=== PATIENT | female | born 1945 | race Caucasian/White ===

== ENCOUNTER 2016-09-23 11:58 | Inpatient (IN) | payer OTHER, MEDICARE ==
[~2016-09-23] VITALS: Ht 165.1 cm; Wt 176.0 kg
--- NOTE | 2016-09-23 11:59 | NUR ---
Patient BIBA to bed 3 at this time.
[2016-09-23 12:13] VITALS: BP 135/73
--- NOTE | 2016-09-23 12:20 | NUR ---
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 PT STATES NORMALLY USES WALKER; NO INJURY OR TRAUMA NOTED; PT C/O "SHARP" NON-RADIATING LOWER BACK PAIN; PT DENIES ANY HEAD OR NECK PAIN; PT DENIES N/V/D; SKIN IS PINK/WARM/DRY; AAOX4; PERRLA; LUNGS CLEAR BL; A. FIB ON CM; PT DENIES ANY FEVER, CP, SOB, OR COUGH AT THIS TIME; VSS; PATIENT POSITIONED FOR COMFORT; HOB ELEVATED; BEDRAILS UP X2; BED DOWN. ER MD MADE AWARE OF PT STATUS.
[2016-09-23] MEDS ORDERED: FERR325E14 PO (12:31)
[2016-09-23] MEDS ORDERED: [UNRECOGNIZED DRUG - CODE] PO (12:31)
[2016-09-23] MEDS ORDERED: MEDR10TA PO (12:31)
[2016-09-23] MEDS ORDERED: PRAV20TA5 PO (12:31)
[2016-09-23] MEDS ORDERED: BACL10TA4 PO (12:31)
[2016-09-23] MEDS ORDERED: ATEN50TA8 PO (12:31)
[2016-09-23] MEDS ORDERED: ASPI81CT89 PO (12:31)
[2016-09-23] MEDS ORDERED: FENO54TA4 PO (12:31)
--- NOTE | 2016-09-23 12:42 | NUR ---
DR STREETER AT BEDSIDE.
[2016-09-23] MEDS ORDERED: traMADol 50 MG TAB PO ONE (12:55)
[2016-09-23] MEDS ORDERED: KETOROLAC 60 MG/2 ML VIAL IM ONE (12:55)
--- NOTE | 2016-09-23 13:00 | NUR ---
SON OF PATIENT, LISA PONCE, BY BEDSIDE; SON STATED "I FEEL LIKE MY MOM IS NOT ABLE TO TAKE CARE OF HER SELF ALONE AT HER HOUSE...SHE DOESN'T ASK FOR HELP WHEN SHE NEEDS IT"; CASE MANAGEMENT CALLED; WILL FOLLOW UP.
--- NOTE | 2016-09-23 13:42 | NUR ---
PATIENT PLACED ON BED RODRIGUEZ
[2016-09-23] MEDS ORDERED: ONDANSETRON 4 MG ODT PO ONE (13:50)
--- NOTE | 2016-09-23 14:00 | NUR ---
PATIENT CHANGED POSITION AND LINENS CHANGED; PATIENT HAD A BOWEL MOVEMENT; PT TOLERATED WELL; ALL NEEDS MET THIS TIME; WILL CONTINUE TO MONITOR
--- NOTE | 2016-09-23 14:35 | NUR ---
TALKED TO SENIOR ENVIRONMENTAL TECHNICIAN;INQUIRE IF PT WANTS TO BE IN [facility] BECAUSE THAT'S THE ONLY OPTION THEY HAVE AT THIS TIME;PER MOTHER SON WANTS HER TO BE IN REHAB.T WNTS TO BE IN [facility] BEACUSE THAT;SENIOR ENVIRONMENTAL TECHNICIAN WILL CALL IF SON RETURN TO ER.
--- NOTE | 2016-09-23 15:08 | NUR ---
SEWER HEAD SPOKE TO SON OF THE PT .
--- NOTE | 2016-09-23 15:12 | NUR ---
X-RAY BY BEDSIDE
--- NOTE | 2016-09-23 15:13 | NUR ---
Patient appears to be resting comfortably in bed. Vital Signs within normal limits. Respirations even and unlabored.
[2016-09-23 15:26] LABS: BASOPHILS # (AUTO) 0.1 K/uL (0.00-0.22); BASOPHILS % (AUTO) 1.1 % (0.0-2.0); EOSINOPHILS # (AUTO) 0.2 K/uL (0-0.4); HEMATOCRIT 40.6 % (36-48); HEMOGLOBIN 13.7 g/dL (12.0-16.0); LYMPHOCYTES # (AUTO) 1.1 K/uL (2.5-16.5); LYMPHOCYTES % (AUTO) 9.6 % (20.5-51.1); MEAN CORPUSCULAR HEMOGLOBIN 29 pg (27-31); MEAN CORPUSCULAR HGB CONC 34 g/dL (33-37); MEAN CORPUSCULAR VOLUME 87 fL (80-94); MONOCYTES # (AUTO) 0.5 K/uL (0.8-1.0); MONOCYTES % (AUTO) 3.9 % (1.7-9.3); NEUTROPHILS % (AUTO) 83.4 % (42.2-75.2); PLATELET COUNT (AUTO) 184 K/uL (140-450); RED BLOOD CELL COUNT(AUTO) 4.68 MIL/uL (4.20-5.40); WHITE BLOOD COUNT (AUTO) 11.9 K/uL (4.8-10.8)
--- NOTE | 2016-09-23 15:27 | NUR ---
SS NOTE: I SPOKE WITH PT'S SON, LISA. HE STATED THAT PT LIVES ALONE AT HOME. HE ALSO STATED THAT HE DOES NOT THINK THAT FAMILY WOULD BE ABLE TO CARE FOR PT DUE TO HER NEED AND SIZE. I INFORMED HIM THAT IT WOULD BE UP TO PT'S INSURANCE ON WHETHER THEY WILL AUTHORIZE SNF PLACEMENT FOR HER, HE VERBALIZED UNDERSTANDING.
[2016-09-23 15:37] LABS: ANION GAP 13.3 (8-16); CALCIUM 9.2 mg/dL (8.5-10.1); CARBON DIOXIDE 26.9 mmol/L (21-32); CHLORIDE 105 mmol/L (98-107); GLUCOSE 138 mg/dL (74-106); POTASSIUM 4.2 mmol/L (3.5-5.1); SODIUM SERUM 141 mmol/L (136-145); UREA NITROGEN, BLOOD 23 mg/dL (7-18)
[2016-09-23 15:44] LABS: ALANINE AMINOTRANSFERASE 38 U/L (14-59); ALBUMIN 3.1 g/dL (3.4-5.0); ALKALINE PHOSPHATASE 96 U/L (46-116); ASPARTATE AMINOTRANSFERASE 48 U/L (15-37); TOTAL BILIRUBIN 1.2 mg/dL (0.0-1.0); TOTAL PROTEIN, SERUM 6.4 g/dL (6.4-8.2)
--- NOTE | 2016-09-23 15:49 | NUR ---
CM NOTE SPOKE W/ HAILEE CHANG FOR [facility] (INPATIENT). FORWARDED PATIENT TO CM FOR [facility] (ER). SPOKE W/ HAILEE ARZOLA FOR [facility] (ER). MADE AWARE THAT PATIENT POSSIBLY WILL BE ADMITTED. WAS PROVIDED # IN CASE IF PATIENT IS STILL IN ER ([phone]). IF PATIENT WERE TO BE ADMITTED, YESICA ([id number]) TO BE CM.
--- NOTE | 2016-09-23 16:03 | NUR ---
PT LYING ON BED;NEEDDS ATTENDED;SAFETY MEASURES DONE;ALL MONITORS IN PLACED.
--- NOTE | 2016-09-23 16:31 | NUR ---
FAMILY BY BEDSIDE; PT HAS NO COMPLAINTS; PT IS AAO X 4; NAD; RR ARE EVEN AND UNLABORED; PT SPEAKING IN FULL SENTENCES; WILL CONTINUE TO MONITOR
[2016-09-23 16:39] LABS: APPEARANCE,URINE CLEAR (CLEAR); BILIRUBIN,URINE 2+ (NEGATIVE); BLOOD, URINE 2+ (NEGATIVE); LEUKOCYTE ESTERASE ,URINE NEGATIVE (NEGATIVE); NITRITE, URINE NEGATIVE (NEGATIVE); PROTEIN,URINE TRACE (NEGATIVE); UGLUCOSE NEGATIVE (NEGATIVE); UROBILINOGEN,URINE 0.2 EU/dL (0.2 - 1)
[2016-09-23 16:43] LABS: COLOR,URINE AMBER (YELLOW)
--- NOTE | 2016-09-23 16:46 | NUR ---
DALI BONDED STRUCTURES REPAIRER CALLED; UPDATED ON PT STATUS
--- NOTE | 2016-09-23 16:56 | NUR ---
DR HARRISON BY BEDSIDE EXAMINING PT
[2016-09-23 17:08] LABS: BACTERIA,URINE None Seen /HPF (None Seen); ICTOTEST NEGATIVE (NEGATIVE); RBC,URINE 0-5 (RARE) /HPF (0-5); SQUAMOUS EPITHELIAL CELL,UR RARE /LPF (0-3 (FEW)); WBC,URINE NONE SEEN /HPF (0-5)
[2016-09-23] MEDS ORDERED: ONDANSETRON 4 MG/2 ML VIAL IM/IVP PRN (17:10)
[2016-09-23] MEDS ORDERED: DOCUSATE SODIUM 100 MG GELCAP PO PRN (17:10)
[2016-09-23] MEDS ORDERED: MORPHINE SULFATE 2 MG/ML SYR IVP PRN (17:10)
[2016-09-23] MEDS ORDERED: ACETAMINOPHEN 325 MG TAB PO PRN (17:10)
--- NOTE | 2016-09-23 17:24 | NUR ---
PT LYING ON BED;SAFETY MEASURES INSTITUTED;NO ACUTE DISTRESS NOTED;WILL CONTIUE TO MONITOR PT.
[2016-09-23] MEDS ORDERED: BACLOFEN 10 MG TAB PO SCH (17:40)
--- NOTE | 2016-09-23 18:09 | NUR ---
ER MD BY BEDSIDE UPDATING MOTHER OF PT
--- NOTE | 2016-09-23 18:34 | NUR ---
Patient will be admitted to care of [facility]. Admited to tele. Will go to room 123B. Belongings list completed. Report to marlene jorge rn.
[2016-09-23] MEDS ORDERED: ECOTRIN 81 MG TABEC PO ONE (18:50)
[2016-09-23] MEDS ORDERED: SIMVASTATIN 10 MG TAB PO ONE (18:50)
--- NOTE | 2016-09-23 18:53 | NUR ---
PT ON UNIT FROM ER. AAOX4. NO S/S OF ACUTE DISTRESS. PT DENIES PAIN. IV SITE PATENT AND INTACT. REDNESS NOTED TO ABDOMINAL FOLDS. PT STATES SKIN CONDITION ON FEET IS RELATED TO PAST CELLULITIS. VITALS ARE 97.8 93% 119/63 18 86. PT ORIENTED TO UNIT. CALL LIGHT WITHIN REACH. SAFETY MEASURES ENSURED. WILL CONTINUE TO MONITOR.
--- NOTE | 2016-09-23 19:30 | NUR ---
RECEIVED REPORT FROM DAY RN AT BEDSIDE, PATIENT IS AAOX4 ON ROOM AIR, NO SOB OR SIGN OF DISTRESS, PT RESTING IN BED, IV TO RIGHT FA PATENT AND INTACT, SKIN INTACT WITH REDNESS IN BODY FOLDS THROUGHOUT BODY, NOTED FOUL ODOR COMING FROM FOLDS WITH MOISTURE PRESENT. DRYNESS AND DISCOLORATION TO BILATERAL LOWER EXTREMITIES. USÁREZ PRESENT DRAINING CLEAR YELLOW FLUID. PT DENIES PAIN AT THIS TIME, CALL LIGHT WITHIN REACH, WILL CONTINUE TO MONITOR.
--- NOTE | 2016-09-23 19:39 | NUR ---
POST REPORT GIVEN TO DALI PT FAMILY AT BEDSIDE, SAFETY MEASURES IN PLACE.
[2016-09-23 19:45] LABS: MAGNESIUM 1.8 mg/dL (1.8-2.4); PHOSPHORUS 3.2 mg/dL (2.5-4.9); THYROID STIMULATING HORMONE 1.33 uIU/mL (0.34-3.74)
[2016-09-23 19:48] LABS: AMPHETAMINE, URINE NEG. ng/ml (NEG <=1000); BARBITURATE, URINE NEG. ng/ml (NEG <=200); BENZODIAZEPINE, URINE NEG. ng/mL (NEG <=200); CANNABINOID, URINE NEG. ng/mL (NEG <=50); COCAINE, URINE NEG. ng/mL (NEG <=300); OPIATE, URINE NEG. ng/mL (NEG <=2000); PHENCYCLIDINE SCREEN,URINE NEG. ng/mL (NEG <=25)
[2016-09-23 20:00] VITALS: BP 141/50
[2016-09-23] MEDS ORDERED: KETOROLAC 15 MG/ML VIAL IM PRN (20:20)
[2016-09-23] MEDS: ATENOLOL 50 MG TAB PO SCH (20:42)
[2016-09-23] MEDS: FERROUS SULFATE 325 MG TABEC PO SCH (20:42)
[2016-09-23] MEDS: BACLOFEN 10 MG TAB PO SCH (20:42)
[2016-09-23] MEDS: medroxyPROGESTERone 10 MG TAB PO SCH (20:43)
--- NOTE | 2016-09-23 20:45 | NUR ---
PM MEDS ADMINISTERED, PT TOLERATED WELL, PT RESTING IN BED, NO SIGNS OF DISTRESS, CALL LIGHT WITHIN REACH. WILL CONTINUE TO MONITOR
[2016-09-23] MEDS ORDERED: NYSTATIN CRE 100 MU/GM 15 GM TUBE TP SCH (21:00)
[2016-09-23] MEDS: NYSTATIN POW 100 MU/GM 15 GM BTL TP SCH (21:00)
[2016-09-23] MEDS ORDERED: METHOCARBAMOL 500 MG TAB PO SCH (21:00)
--- NOTE | 2016-09-23 21:25 | NUR ---
CLARIFIED THE [place] ORDER WITH DR VARGAS AND ALISE COLLIER TO GIVE THE FIRST DOSE NOW AND DO NOT ADMINISTER THE MIDNIGHT DOSE, WILL F/U WITH ORDERS. AND MDS STATED TO D/C SUÁREZ PATIENT IS HIGH RISK FOR UTI, WILL CARRY OUT ORDER.
[2016-09-23] MEDS ORDERED: CLINDAMYCIN 600 MG/4 ML VIAL ONE (21:31)
[2016-09-23] MEDS: CLINDAMYCIN 600 MG in DEXTROSE 5% 50 ML IV SCH (21:38)
--- NOTE | 2016-09-23 21:55 | NUR ---
EXPLAINED TO PATIENT I WAS GOING TO REMOVE HER SUÁREZ PER MD ORDER, PT EXPLAINED THAT SHE WOULD LIKE TO KEEP THE SUÁREZ IN FOR THE NIGHT BECAUSE SHE GOES TO THE BATHROOM FREQUENTLY AND SHE DOES NOT "FEEL RIGHT" TO BE GETTING UP AND MOVING. SPOKE WITH DR VARGAS LETTING HER KNOW THE PT WANTS TO KEEP THE SUÁREZ FOR THE NIGHT, MD TO BEDSIDE AND SPOKE WITH PATIENT AND EXPLAINED TO THE PATIENT OF ALL THE RISKS OF KEEPING IN THE SUÁREZ AND THE RISKS OF GETTING A UTI. PATIENT VERBALIZED UNDERSTANDING AND TOLD MD SHE WOULD STILL LIKE TO KEEP THE SUÁREZ IN FOR THE NIGHT. MD ACKNOWLEDGED AND STATED IT WAS OKAY THEN TO KEEP IN THE SUÁREZ.
[2016-09-23] MEDS: NACL 0.9% 1,000 ML IV SCH (22:12)
[2016-09-23 22:25] LABS: INR 1.1 (0.8-1.2); PARTIAL THROMBOPLASTIN TIME 27.9 secs (22-35.6); PROTHROMBIN TIME 10.9 secs (10.8-13.4)
[2016-09-24] VITALS: BP 112/56
--- NOTE | 2016-09-24 | NUR ---
PT SLEEPING, NO SOB OR SIGN OF DISTRESS AT THIS TIME, CALL LIGHT WITHIN REACH. WILL CONTINUE TO MONITOR.
--- NOTE | 2016-09-24 02:30 | NUR ---
PT SLEEPING, NO SOB OR SIGN OF DISTRESS, CALL LIGHT WITHIN REACH. WILL CONTINUE TO MONITOR
[2016-09-24 02:55] LABS: CHOL/HDL RATIO 4.3 (1-4.5)
[2016-09-24 04:00] VITALS: BP 136/56
--- NOTE | 2016-09-24 04:00 | NUR ---
VITAL SIGNS STABLE, NO SOB OR SIGN OF DISTRESS AT THIS TIME, PATIENT GIVEN BED BATH, INTERDRY APPLIED BETWEEN ABDOMINAL FOLDS, CALL LIGHT WITHIN REACH. WILL CONTINUE TO MONITOR
[2016-09-24] MEDS ORDERED: CLINDAMYCIN 600 MG/4 ML VIAL ONE (05:39)
[2016-09-24] MEDS: CLINDAMYCIN 600 MG in DEXTROSE 5% 50 ML IV SCH ×5 (05:47→18:36)
--- NOTE | 2016-09-24 06:26 | NUR ---
FAXED FACE SHEET TO AND DR BLAND'S OFFICES FOR THEIR CONSULTS.
--- NOTE | 2016-09-24 06:35 | NUR ---
DR. BLAND'S FAX SHOWED NO RESPONSE.
--- NOTE | 2016-09-24 07:32 | NUR ---
ENDORSED PATIENT TO DAY RN AT BEDSIDE, PT IN STABLE CONDITION
--- NOTE | 2016-09-24 07:35 | NUR ---
RECEIVED REPORT FROM ELENI MCNALLY. PT IS RESTING IN BED, PT IS A/OX4, PT AMBULATES WITH ASSISTANCE, PT HAS BILATERAL LOWER EXTREMITY DRYNESS, REDNESS UNDERNEATH SKIN FOLDS, SUÁREZ CATHETER IS IN PLACE, NO S/S OF RESPIRATORY DISTRESS OR DISCOMFORT NOTED, SAFETY/FALL PRECAUTIONS ARE IN PLACE, DISCUSSED PLAN OF CARE WITH PT, PT VERBALIZED UNDERSTANDING, CALL LIGHT WITHIN REACH, WILL CONTINUE TO MONITOR.
[2016-09-24 07:38] LABS: BASOPHILS # (AUTO) 0.1 K/uL (0.00-0.22); EOSINOPHILS # (AUTO) 0.3 K/uL (0-0.4); EOSINOPHILS % (AUTO) 3.3 % (0.0-4.0); HEMATOCRIT 38.8 % (36-48); LYMPHOCYTES # (AUTO) 1.3 K/uL (2.5-16.5); LYMPHOCYTES % (AUTO) 15.7 % (20.5-51.1); MEAN CORPUSCULAR HEMOGLOBIN 30 pg (27-31); MEAN CORPUSCULAR HGB CONC 34 g/dL (33-37); MEAN CORPUSCULAR VOLUME 89 fL (80-94); MONOCYTES # (AUTO) 0.5 K/uL (0.8-1.0); NEUTROPHILS # (AUTO) 5.9 K/uL (1.8-7.7); PLATELET COUNT (AUTO) 161 K/uL (140-450); RED BLOOD CELL COUNT(AUTO) 4.38 MIL/uL (4.20-5.40); RED CELL DISTRIBUTION WIDTH 13.8 % (11.6-13.7); WHITE BLOOD COUNT (AUTO) 8.1 K/uL (4.8-10.8)
[2016-09-24 08:00] VITALS: BP 124/59
[2016-09-24 08:09] LABS: ANION GAP 12.8 (8-16); CARBON DIOXIDE 26.4 mmol/L (21-32); CHLORIDE 106 mmol/L (98-107); CREATININE 0.9 mg/dL (0.6-1.3); GLUCOSE 116 mg/dL (74-106); POTASSIUM 4.2 mmol/L (3.5-5.1); SODIUM SERUM 141 mmol/L (136-145); UREA NITROGEN, BLOOD 21 mg/dL (7-18)
[2016-09-24] MEDS ORDERED: INTERDRY CLOTH TP PRN ×2 (08:45→14:20)
[2016-09-24] MEDS ORDERED: INTERDRY CLOTH TP SCH ×2 (09:00→14:20)
[2016-09-24] MEDS ORDERED: NON-FORMULARY ITEM (Fenofibrate 1 TAB) PO SCH (09:00)
--- NOTE | 2016-09-24 09:00 | NUR ---
PHYSICAL THERAPY IS IN PATIENT'S ROOM WORKING WITH PATIENT.
--- NOTE | 2016-09-24 09:13 | NUR ---
FAXED INITIAL REVIEW TO ML [phone] PHONE YESICA [phone] X [phone]
--- NOTE | 2016-09-24 09:13 | NUR ---
PATIENT HAS BEEN SCREENED AND CATEGORIZED HIGH NUTRITION RISK. PATIENT WILL BE SEEN WITHIN 1-2 DAYS OF ADMISSION. 09/24/16-09/25/[address]
[2016-09-24] MEDS ORDERED: NYSTATIN/TRIAMCINOLONE CRM 15 GM TUBE TP SCH (09:20)
[2016-09-24] MEDS: DILTIAZEM 120 MG CAPER PO SCH (09:24)
[2016-09-24] MEDS: LACTOBACILLUS RHAMNOSUS GG 1 EACH CAP PO SCH (09:25)
[2016-09-24] MEDS: ASPIRIN 81 MG TAB.CHEW PO SCH (09:25)
[2016-09-24] MEDS: BACLOFEN 10 MG TAB PO SCH ×2 (09:25→20:31)
[2016-09-24] MEDS: medroxyPROGESTERone 10 MG TAB PO SCH ×2 (09:26→20:31)
[2016-09-24] MEDS: FERROUS SULFATE 325 MG TABEC PO SCH ×2 (09:26→20:31)
[2016-09-24] MEDS: MUPIROCIN 2% OINT 22 GM TUBE TP SCH ×3 (09:27→17:44)
[2016-09-24] MEDS: NYSTATIN POW 100 MU/GM 15 GM BTL TP SCH (09:27)
[2016-09-24 09:30] LABS: MAGNESIUM 1.8 mg/dL (1.8-2.4); PHOSPHORUS 3.4 mg/dL (2.5-4.9)
[2016-09-24 09:46] LABS: HEMOGLOBIN A1C 5.9 % (4.8-5.6)
[2016-09-24] MEDS ORDERED: LACTULOSE 20 GM/30 ML UDC PO SCH (11:01)
[2016-09-24 12:00] VITALS: BP 125/54
--- NOTE | 2016-09-24 12:00 | NUR ---
PT IS RESTING IN BED, PATIENT'S SON IS AT BEDSIDE, CALL LIGHT WITHIN REACH.
--- NOTE | 2016-09-24 12:11 | NUR ---
09/24/16 RD INITIAL ASSESSMENT COMPLETED PLEASE REFER TO NUTRITION ASSESSMENT UNDER CARE ACTIVITY FOR ESTIMATED NUTRITIONAL NEEDS. 1. CONSIDER SWITCH FROM CARDIAC TO MECHANICAL SOFT, CARDIAC [address]ED[address] Addendum: 09/24/16 at [address] 09/24/16 RD INITIAL ASSESSMENT COMPLETED PLEASE REFER TO NUTRITION ASSESSMENT UNDER CARE ACTIVITY FOR ESTIMATED NUTRITIONAL NEEDS. 1. CHANGE DIET TO CARDIAC, MECHANICAL SOFT DIET. 2. RD TO FOLLOW-UP MODERATE RISK, 3-[address]
--- NOTE | 2016-09-24 13:40 | NUR ---
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 PAST MEDICAL HISTORY INCLUDE HYPERTENSION, CHRONIC LYMPHEDEMA OF BLE, A FIB, RHEUMATOID ARTHRITIS AND GLAUCOMA. ALL ABOVE INFORMATION WAS OBTAINED FROM THE ADMISSION H&P. LABS ARE WBC 8.1, H/H 13.0/38.8, GLUCOSE 116, ALBUMIN 3.1, PT/INR 10.9/1.1 AND PTT 27.9. CURRENT MEDS INCLUDE RIVAROXABAN, ASPIRIN, TORADOL, CLINDAMYCIN, MORPHINE AND NORCO. PATIENT IS AWAKE, ORIENTED TO PERSON, PLACE, DATE AND TIME. SKIN WARM TO TOUCH WNL, TOENAILS ARE LONG AND THICKENED, FUNGALLY LOOKING, 3 EDEMA, NO HAIR GROWTH, BLE ARE DRY AND FLAKY, WITH FOUL ODOR AND UNABLE TO PALPATE BILATERAL PEDAL PULSES. FC 16FR PATENT AND INTACT TO RHONDA COLORED URINE IN MODERATE AMOUNT. RIGHT ARM PERIPHERAL IV PATENT AND INTACT. ON ROOM AIR. NEEDS MAX ASSISTANCE IN TURNING. INITIAL PLAN OF CARE AND PRESSURE PREVENTIVE MEASURES DISCUSSED, ABLE TO VERBALIZE UNDERSTANDING. INTEGUMENTARY: BILATERAL BREASTFOLDS, ABDOMINAL FOLDS - INTERTRIGINOUS DERMATITIS BLE - DRY AND FLAKY, PENDING ARTERIAL AND VENOUS U/S SACRALCOCCYX, PERIAREA TO BILATERAL MEDIAL THIGHS - DENUDED RECOMMENDATIONS: -CLEANSE BILATERAL BREASTFOLDS, ABDOMINAL FOLDS WITH MILD SOAP AND WATER, PAT DRY, APPLY INTERDRY Q 7 DAYS AND PRN WITH SOILING. CHECK DRESSING PLACEMENT DAILY -CLEANSE SACRALCOCCYX, PERIAREA TO BILATERAL MEDIAL THIGHS WITH MILD SOAP AND WATER, PAT DRY, APPLY Z GUARD BIDWC AND PRN WITH SOILING. LEAVE OPEN TO AIR -TURN AND REPOSITION PATIENT Q 2H -ASSESS AND MONITOR SKIN CONDITION DURING POSITION CHANGE, PLEASE PAY PARTICULAR ATTENTION TO SACRALCOCCYX, ELBOWS AND HEELS -OFFLOAD BILATERAL HEELS BY PLACING PILLOWS UNDER CALVES AT ALL TIMES, UNLESS OTHERWISE CONTRAINDICATED -PRESSURE REDISTRIBUTION SURFACE THERAPY -PODIATRY CONSULT IN PLACE -BLE ARTERIAL AND VENOUS U/S PENDING RESULTS -KEEP SKIN CLEAN AND DRY AT ALL TIMES. RECOMMENDATIONS DISCUSSED WITH PRIMARY RN AND RESIDENT PHYSICIAN, DR. GRAF WILL FOLLOW UP PATIENT Q7 DAYS AND PRN. PLEASE CONTACT [facility] FOR ANY CONCERNS, QUESTIONS AND CHANGES IN SKIN CONDITION.
[2016-09-24] MEDS ORDERED: Z-GUARD PASTE TP PRN (14:20)
--- NOTE | 2016-09-24 14:30 | NUR ---
PT IS SLEEPING IN BED, CALL LIGHT WITHIN REACH.
[2016-09-24 16:00] VITALS: BP 118/56
[2016-09-24] MEDS ORDERED: ATORVASTATIN 20 MG TAB PO SCH (16:15)
--- NOTE | 2016-09-24 17:44 | NUR ---
STORAGE AND BACKUP ADMINISTRATOR IS AT PATIENT'S BEDSIDE AT THIS TIME.
[2016-09-24] MEDS: NACL 0.9% 1,000 ML IV SCH (18:34)
[2016-09-24] MEDS: RIVAROXABAN 10 MG TAB PO SCH (18:39)
--- NOTE | 2016-09-24 19:20 | NUR ---
ENDORSED PT TO ELENI PAIGE. FOR CONTINUITY OF CARE, PT STABLE AT THIS TIME, PT'S FRIEND IS AT BEDSIDE.
--- NOTE | 2016-09-24 19:25 | NUR ---
RECEIVED PT IN STABLE CONDITION FROM AM NURSE. AWAKE,ALERT AND ORIENTED X4. TELE PT. BEDREST. WITH TARSHA WEAKNESS. NO C/O ANY DISCOMFORT NOR PAIN NOTED A THIS TIME. IVF INFUSING WELL ON THE RT FA #[id number]. CLEAR AND PATENT. TARSHA BREAST FOLD AND LOWER ABDOMINAL FOLDS WITH SOME REDNESS, HAS INTER DRY CLOTH ON. SUÁREZ CATH TO GRAVITY. BLE LARGE WITH SKIN DRYNESS. ELEVATED ON PILLOW. PLAN OF CARE DISCUSSED AND VERBALIZED UNDERSTANDING. BED ON LOW POSITION. CALL LIGHT PLACED WITHIN EASY REACH. WILL CONTINUE TO MONITOR.
[2016-09-24 20:00] VITALS: BP 126/54
[2016-09-24] MEDS ORDERED: SIMVASTATIN 10 MG TAB PO SCH ×2 (21:00)
[2016-09-24] MEDS: ATENOLOL 50 MG TAB PO SCH (21:00)
--- NOTE | 2016-09-24 22:00 | NUR ---
MADE ROUNDS. STILL AWAKE. NO C/O ANY DISCOMFORT NOTED. WILL CONTINUE TO MONITOR.
[2016-09-25] VITALS: BP 128/62
[2016-09-25] MEDS: CLINDAMYCIN 600 MG in DEXTROSE 5% 50 ML IV SCH ×5 (00:04→23:34)
[2016-09-25] MEDS: Z-GUARD PASTE TP SCH ×2 (00:06→13:48)
--- NOTE | 2016-09-25 02:00 | NUR ---
SLEEPING WELL AT THIS TIME. NO S/S FO ANY DISCOMFORT/NOR PAIN NOTED.
[2016-09-25] MEDS: HYDROcodone/APAP 7.5/325 MG 1 TAB PO PRN ×2 (03:04→16:46)
[2016-09-25] MEDS: NACL 0.9% 1,000 ML IV SCH ×2 (04:42→13:49)
[2016-09-25 04:45] VITALS: BP 113/56
--- NOTE | 2016-09-25 04:45 | NUR ---
PT ASLEEP. NO S/S OF ANY DISCOMFORT NOTED. VITAL SIGNS STABLE.
--- NOTE | 2016-09-25 07:25 | NUR ---
ENDORSED PT IN STABLE CONDITION TO AM NURSE.
[2016-09-25 07:27] LABS: BASOPHILS # (AUTO) 0.1 K/uL (0.00-0.22); BASOPHILS % (AUTO) 1.1 % (0.0-2.0); EOSINOPHILS # (AUTO) 0.4 K/uL (0-0.4); EOSINOPHILS % (AUTO) 4.7 % (0.0-4.0); HEMATOCRIT 37.7 % (36-48); LYMPHOCYTES # (AUTO) 1.7 K/uL (2.5-16.5); LYMPHOCYTES % (AUTO) 22.2 % (20.5-51.1); MEAN CORPUSCULAR HEMOGLOBIN 28 pg (27-31); MEAN CORPUSCULAR HGB CONC 32 g/dL (33-37); MEAN CORPUSCULAR VOLUME 89 fL (80-94); MONOCYTES # (AUTO) 0.4 K/uL (0.8-1.0); MONOCYTES % (AUTO) 5.8 % (1.7-9.3); NEUTROPHILS # (AUTO) 5.1 K/uL (1.8-7.7); NEUTROPHILS % (AUTO) 66.2 % (42.2-75.2); PLATELET COUNT (AUTO) 180 K/uL (140-450); RED BLOOD CELL COUNT(AUTO) 4.23 MIL/uL (4.20-5.40); RED CELL DISTRIBUTION WIDTH 14.3 % (11.6-13.7); WHITE BLOOD COUNT (AUTO) 7.7 K/uL (4.8-10.8)
--- NOTE | 2016-09-25 07:30 | NUR ---
RECEIVED REPORT FROM ELENI PAIGE. PT IS RESTING IN BED, PT IS A/OX4, PT IS BEDBOUND, PT HAS BILATERAL LOWER EXTREMITY DRYNESS, REDNESS UNDERNEATH SKIN FOLDS, SUÁREZ CATHETER IS IN PLACE, NO S/S OF RESPIRATORY DISTRESS OR DISCOMFORT NOTED, SAFETY/FALL PRECAUTIONS ARE IN PLACE, DISCUSSED PLAN OF CARE WITH PT, PT VERBALIZED UNDERSTANDING, CALL LIGHT WITHIN REACH, WILL CONTINUE TO MONITOR.
[2016-09-25 07:40] LABS: ANION GAP 9.7 (8-16); CALCIUM 8.3 mg/dL (8.5-10.1); CARBON DIOXIDE 27.4 mmol/L (21-32); CHLORIDE 107 mmol/L (98-107); CREATININE 0.8 mg/dL (0.6-1.3); GLUCOSE 124 mg/dL (74-106); POTASSIUM 4.1 mmol/L (3.5-5.1); SODIUM SERUM 140 mmol/L (136-145); UREA NITROGEN, BLOOD 17 mg/dL (7-18)
[2016-09-25 08:00] VITALS: BP 133/61
[2016-09-25] MEDS: ASPIRIN 81 MG TAB.CHEW PO SCH (08:57)
[2016-09-25] MEDS: FERROUS SULFATE 325 MG TABEC PO SCH ×2 (08:58→20:51)
[2016-09-25] MEDS: BACLOFEN 10 MG TAB PO SCH ×2 (08:58→20:51)
[2016-09-25] MEDS: LACTOBACILLUS RHAMNOSUS GG 1 EACH CAP PO SCH (08:58)
[2016-09-25] MEDS: DILTIAZEM 120 MG CAPER PO SCH (08:58)
[2016-09-25] MEDS: medroxyPROGESTERone 10 MG TAB PO SCH ×2 (08:59→20:52)
[2016-09-25] MEDS: ATORVASTATIN 20 MG TAB PO SCH (08:59)
[2016-09-25] MEDS: MUPIROCIN 2% OINT 22 GM TUBE TP SCH ×3 (09:00→17:02)
[2016-09-25] MEDS ORDERED: ANTIFUNGAL CLEAR OINTMENT TP SCH (09:00)
[2016-09-25] MEDS: LACTULOSE 20 GM/30 ML UDC PO SCH (09:00)
--- NOTE | 2016-09-25 09:00 | NUR ---
DR. RIVERA, FACILITIES PLANT ENGINEER IS AT PATIENT'S BEDSIDE, WRAPPING THE PATIENT BILATERAL LOWER EXTREMITIES, DR. RIVERA HAD PATIENT SIGN CONSENT FOR BILATERAL TOE NAIL DEBRIDEMENT.
--- NOTE | 2016-09-25 09:45 | NUR ---
LIGHT VAGINAL BLEEDING NOTED, INFORMED DR. GRAF (RESIDENT DOCTOR).
--- NOTE | 2016-09-25 10:00 | NUR ---
DR. GRAF IS AT PATIENT'S BEDSIDE EXAMINING PATIENT.
--- NOTE | 2016-09-25 10:16 | NUR ---
FAXED CONCURRENT REVIEW TO ML [phone] PHONE [phone] YESICA FAXED ORDER FOR MARISABEL TO ML
--- NOTE | 2016-09-25 11:45 | NUR ---
PT REPOSITIONED FOR COMFORT AT THIS TIME.
[2016-09-25 12:00] VITALS: BP 119/49
--- NOTE | 2016-09-25 12:37 | NUR ---
Social Service Note: I faxed patient's clinical information to [facility] . Per Nora from [facility] , she will come evaluate patient today in the afternoon, keycase assembler Ashely diaz.
--- NOTE | 2016-09-25 12:53 | NUR ---
I CALLED ML AND LEFT MESSAGE EARLIER TODAY ABOUT WHETHER [facility] WILL AUTH MARISABEL. I CALLED AGAIN AND SPOKE WITH YESICA. SHE SAID THEY ARE CONTRACTED WITH [facility], BUT THE PATIENT NEEDS TO MEET CERTAIN CRITERIA FOR THEM TO AUTH. YESICA ASKED IS [facility] HAS ACCEPTED THIS PATIENT. I AM TO LET HER KNOW IF [facility] WILL TAKE THIS PATIENT AND THEN SHE NEEDS TO PRESENT IT TO HER MERCURY CRACKING TESTER FOR AUTH. SHE ALSO SAID THAT IF THE PATIENT GOES TO A SNF, THEY WILL AUTH A BARIATRIC BED. YESICA PHONE [phone] X [phone]
--- NOTE | 2016-09-25 13:45 | NUR ---
SKIN CARE GIVEN TO PT, PT TOLERATED WELL, PT MOBILITY LIMITED.
--- NOTE | 2016-09-25 14:18 | NUR ---
SS NOTE: SATISH BERTRAND FROM [facility] ([phone]), THEY ARE WILLING TO CONSIDER PT IF PT CAN SHOW THAT SHE CAN TRANSFER FROM HER BED TO HER CHAIR, THEY MAY CONSIDER THE PT. SHE ALSO REQUESTED UPDATED PT NOTES FOR TOMORROW SO THEY CAN CONTINUE THEIR EVALUATION.
--- NOTE | 2016-09-25 15:00 | NUR ---
PATIENT IS SLEEPING IN BED AT THIS TIME, CALL LIGHT IS WITHIN REACH.
[2016-09-25 16:00] VITALS: BP 131/60
[2016-09-25] MEDS: SERTRALINE 50 MG TAB PO SCH (16:10)
--- NOTE | 2016-09-25 17:02 | NUR ---
SKIN CARE GIVEN TO PT, OINTMENT APPLIED TO DRY AREAS OF BILATERAL LEGS.
--- NOTE | 2016-09-25 17:03 | NUR ---
SS NOTE: PER EDMUNDO FROM [facility], THEY ARE WILLING TO CONSIDER PT IF [facility] WILL PAY FOR [facility] AND A BARIATRIC BED PER TIERRA FROM [facility], THEY HAVE A BARIATRIC BED, A CONTRACT WITH [facility] BUT THEY NEED TO CONFIRM THE D/C PLAN WITH PT'S FAMILY BEFORE THEY CAN ACCEPT PT
--- NOTE | 2016-09-25 17:30 | NUR ---
INFORMED DR. GRAF THE PATIENT WAS STILL HAVING LIGHT VAGINAL BLEEDING, DR. GRAF STATED TO KEEP MONITORING AND INFORM HER IF BLEEDING INCREASED.
[2016-09-25] MEDS: RIVAROXABAN 10 MG TAB PO SCH (18:01)
--- NOTE | 2016-09-25 19:15 | NUR ---
ENDORSED PT TO ELENI PAIGE. FOR CONTINUITY OF CARE, PT STABLE AT THIS TIME.
--- NOTE | 2016-09-25 19:20 | NUR ---
RECEIVED PT IN STABLE CONDITION FROM AM NURSE. AWAKE,ALERT AND ORIENTED X4. ON BEDREST. OBESE. WITH TELE MONITOR. NO C/O ANY DISCOMFORT NOR PAIN NOTED . IVF INFUSING WELL ON THE RT FA#[id number]. CLEAR AND PATENT. HAS SUÁREZ CATHETER DRAINING WELL TO A CLEAR DARK RHONDA URINE. PLAN OF CARE DISCUSSED AND VERBALIZED UNDERSTANDING. BED ON LOW POSITION. SIDE RAILS UP X2. CALL LIGHT PLACED WITHIN EASY REACH. WILL CONTINUE TO MONITOR.
[2016-09-25 19:50] VITALS: BP 124/54
[2016-09-25] MEDS: ATENOLOL 50 MG TAB PO SCH (20:52)
--- NOTE | 2016-09-25 21:30 | NUR ---
PT REPOSITIONED FOR COMFORT . WITH SCANTY VAGINAL BLEEDING. CLEANED AND KEPT DRY. WILL CONTINUE TO MONITOR.
[2016-09-26] VITALS: BP 130/58
[2016-09-26] MEDS: Z-GUARD PASTE TP SCH ×2 (00:50→13:00)
[2016-09-26] MEDS: HYDROcodone/APAP 7.5/325 MG 1 TAB PO PRN ×2 (02:33→10:23)
--- NOTE | 2016-09-26 03:30 | NUR ---
SLEEPING AT THIS TIME . NO S/S OF ANY DISCOMFORT NOTED.
[2016-09-26] MEDS: NACL 0.9% 1,000 ML IV SCH ×2 (03:51→08:34)
[2016-09-26 04:00] VITALS: BP 122/58
--- NOTE | 2016-09-26 04:30 | NUR ---
MI REFUSED TO BE TURNED AT THIS TIME.
[2016-09-26] MEDS: CLINDAMYCIN 600 MG in DEXTROSE 5% 50 ML IV SCH ×4 (05:38→23:16)
--- NOTE | 2016-09-26 06:40 | NUR ---
PT C/O NO BM X 3 DAYS . TRIED TO USE BEDPAN BUT JUST PASSED SOME GAS. COLACE PO GIVEN ORDERED.
--- NOTE | 2016-09-26 07:25 | NUR ---
ENDORSED PT IN STABLE CONDITION TO AM NURSE.
--- NOTE | 2016-09-26 07:26 | NUR ---
RECEIVED REPORT FROM THE PACKAGE CAR DRIVER NURSE AT BEDSIDE FOR CONTINUITY OF CARE. PT IS A 15 Y/O MALE. PT IS AWAKE AND ORIENTED. INTRODUCED MYSELF AND UPDATED THE BOARD. PT V/S WITHIN NORMAL RANGE. PT IS AFEBRILE. NO SIGNS OF DISTRESS. DENIES PAIN. DR MENDEZ CAME IN AND STATED HE WILL BE D/C'D TODAY. PT WILL CALL MOM AND HAVE HER COME. Addendum: 09/26/16 at 0903 by Samantha Patton RN WRONG PT. DISREGARD ENTRY.
--- NOTE | 2016-09-26 07:26 | NUR ---
RECEIVED REPORT FROM THE DATABASE TECHNICIAN NURSE AT BEDSIDE FOR CONTINUITY OF CARE. PT IS AWAKE AND ORIENTED. INTRODUCED MYSELF AND UPDATED THE BOARD. PT V/S WITHIN NORMAL RANGE. NO SIGNS OF DISTRESS. DRS WERE HERE TO LET HER KNOW THAT THE SS IS WORKING ON PT GOING BACK TO [facility] FOR PT. PT THOUGHT SHE WAS GOING TOMORROW. CONCERNED THAT SHE IS NOT FEELING WELL ENOUGH TO GO. PT C/O CHRONIC BACK PAIN. REFUSES TO BE TURNED. WILL CONTINUE TO MONITOR PT.
[2016-09-26 07:38] LABS: BASOPHILS # (AUTO) 0.1 K/uL (0.00-0.22); BASOPHILS % (AUTO) 1.9 % (0.0-2.0); EOSINOPHILS # (AUTO) 0.3 K/uL (0-0.4); HEMATOCRIT 37.3 % (36-48); HEMOGLOBIN 12.1 g/dL (12.0-16.0); LYMPHOCYTES # (AUTO) 1.5 K/uL (2.5-16.5); LYMPHOCYTES % (AUTO) 25.8 % (20.5-51.1); MEAN CORPUSCULAR HEMOGLOBIN 29 pg (27-31); MEAN CORPUSCULAR HGB CONC 32 g/dL (33-37); MEAN CORPUSCULAR VOLUME 88 fL (80-94); MONOCYTES # (AUTO) 0.4 K/uL (0.8-1.0); MONOCYTES % (AUTO) 6.2 % (1.7-9.3); NEUTROPHILS # (AUTO) 3.4 K/uL (1.8-7.7); NEUTROPHILS % (AUTO) 60.1 % (42.2-75.2); PLATELET COUNT (AUTO) 171 K/uL (140-450); RED BLOOD CELL COUNT(AUTO) 4.22 MIL/uL (4.20-5.40); RED CELL DISTRIBUTION WIDTH 14.4 % (11.6-13.7); WHITE BLOOD COUNT (AUTO) 5.7 K/uL (4.8-10.8)
[2016-09-26 07:47] LABS: ANION GAP 7.6 (8-16); CALCIUM 8.4 mg/dL (8.5-10.1); CARBON DIOXIDE 29.7 mmol/L (21-32); CHLORIDE 106 mmol/L (98-107); CREATININE 0.8 mg/dL (0.6-1.3); GLUCOSE 112 mg/dL (74-106); POTASSIUM 4.3 mmol/L (3.5-5.1); SODIUM SERUM 139 mmol/L (136-145); UREA NITROGEN, BLOOD 13 mg/dL (7-18)
[2016-09-26 08:00] VITALS: BP 129/57
[2016-09-26] MEDS: LACTOBACILLUS RHAMNOSUS GG 1 EACH CAP PO SCH (08:32)
[2016-09-26] MEDS: FERROUS SULFATE 325 MG TABEC PO SCH ×2 (08:32→20:29)
[2016-09-26] MEDS: medroxyPROGESTERone 10 MG TAB PO SCH ×2 (08:32→20:29)
[2016-09-26] MEDS: DILTIAZEM 120 MG CAPER PO SCH (08:32)
[2016-09-26] MEDS: SERTRALINE 50 MG TAB PO SCH (08:32)
[2016-09-26] MEDS: BACLOFEN 10 MG TAB PO SCH ×2 (08:33→20:29)
[2016-09-26] MEDS: MUPIROCIN 2% OINT 22 GM TUBE TP SCH ×3 (08:33→16:30)
[2016-09-26] MEDS: LACTULOSE 20 GM/30 ML UDC PO SCH (08:33)
[2016-09-26] MEDS: ATORVASTATIN 20 MG TAB PO SCH (08:33)
--- NOTE | 2016-09-26 08:35 | NUR ---
ADMINISTERED MORNING MEDS. PT TOLERATED WELL. NO COMPLAINTS AT THIS TIME.
--- NOTE | 2016-09-26 10:23 | NUR ---
CM NOTE CONCURRENT REVIEW FAXED TO ML / FAX# [phone], ATTN: YESICA #[phone] X [phone]
--- NOTE | 2016-09-26 11:10 | NUR ---
PT HAD LARGE BM IN THE BED RODRIGUEZ. CLEANED PT UP AND PT WAS ABLE TO GET HER UP AND WALKING AROUND THE ROOM. PT TOLERATED WELL.
[2016-09-26 12:00] VITALS: BP_SYST 140; BP_SYST 143; BP_DIAS 64; BP_DIAS 76
--- NOTE | 2016-09-26 13:00 | NUR ---
OSKAR PAGE. PT HAS NO COMPLAINTS AT THIS TIME. Addendum: 09/26/16 at 1510 by Samantha Patton RN DID NOT APPLY BACTROBAN ON LOWER LEG D/T BANDAGING IN BOTH LOWER EXTREMITIES BY THE BMX RIDER. BMX RIDER WILL BE BACK TO REMOVE.
--- NOTE | 2016-09-26 14:25 | NUR ---
SS NOTE: PER JAVIER FROM [facility] ([phone]), SHE RECEIVED PT'S UPDATED PT NOTES AND WILL REVIEW THEM TO SEE IF THEY CAN ACCEPT PT. PER TIERRA FROM [facility] ([phone]), THEY ARE ABLE TO ACCEPT PT IF ML IS WILLING TO PROVIDE A LEVEL 3 AUTH. HAILEE FORRESTER AWARE OF THE ABOVE INFO
--- NOTE | 2016-09-26 14:47 | NUR ---
PT VISITING WITH SISTER. PT IS RESTING COMFORTABLY. NO SIGNS OF DISTRESS. ATE 50% OF LUNCH. WILL CONTINUE TO MONITOR PT.
--- NOTE | 2016-09-26 14:54 | NUR ---
JAVIER FROM [facility] CALLED. ASKED RE JOSE ARMANDO HANEY AND V/S. WILL LET ME KNOW IF THEY ACCEPT HER TODAY.
[2016-09-26 16:00] VITALS: BP 136/59
--- NOTE | 2016-09-26 16:18 | NUR ---
HAILEE NOTE SPOKE W/ HAILEE ROBERT FOR [facility]. AUTH WILL BE PROVIDED BY TOMORROW. MADE AWARE THAT HAILEE BECKER WILL BE IN TOMORROW. DR. COOMBS MADE AWARE.
--- NOTE | 2016-09-26 19:20 | NUR ---
ENDORSED PT TO THE NIGHTSHIFT NURSE AT BEDSIDE FOR CONTINUITY OF CARE. PT IS IN STABLE CONDITION. NO SIGNS OF DISTRESS OR COMPLAINTS.
--- NOTE | 2016-09-26 19:30 | NUR ---
RECEIVED REPORT FROM AM NURSE. PT FAMILY AT BEDSIDE. PT RESTING IN BED, AOX4, ABLE TO VERBALIZE NEEDS. PT DENIES CHEST PAIN, SOB OR S/S OF ACUTE DISTRESS. PRESCRIPTION EYEGLASS MAKER IN PLACE. MORBID OBESITY, BUE EDEMA NOTED, BLE EDEMA NOTED, BARBRA WRAP IN PLACE CLEAN DRY AND INTACT. REDNESS AT BREASTFOLDS AND ABD FOLDS, INTERDRY IN PLACE. SACRAL REDNESS NOTED, Z-GUARD IN PLACE. SUÁREZ CATH IN PLACE, DRAINING CLEAR YELLOW URINE. IV ACCESS ASYMPTOMATIC, PATENT AND INTACT. IVF INFUSING WELL. DISCUSSED AND REVIEWED PLAN OF CARE WITH PT. PT VERBALIZED UNDERSTANDING. SAFETY MEASURES ENSURED. CALL LIGHT WITHIN REACH. WILL CONTINUE TO MONITOR.
[2016-09-26 20:00] VITALS: BP 124/66
[2016-09-26] MEDS: ATENOLOL 50 MG TAB PO SCH (20:29)
--- NOTE | 2016-09-26 20:33 | NUR ---
ADMINISTERED DUE MEDICATIONS WITH EDUCATION. PT VERBALIZED UNDERSTANDING, TOLERATED MEDS WELL. PT REFUSED TO TURN AND REPOSITION, PT STATED "NO, MY BACK HURTS." WILL TRY AGAIN LATER. ALL NEEDS MET. SAFETY MEASURES ENSURED. CALL LIGHT WITHIN REACH. WILL CONTINUE TO MONITOR.
[2016-09-27] VITALS: BP 144/71
--- NOTE | 2016-09-27 | NUR ---
PT TEMP 99.7, COOLING MEASURES ENSURED. WILL CONTINUE TO MONITOR. Z-GUARD APPLIED. PT TURNED AND REPOSITIONED, OFFLOADED PRESSURE AREAS AND BLE. PT TOLERATED WELL. ALL NEEDS MET. SAFETY MEASURES ENSURED. CALL LIGHT WITHIN REACH. WILL CONTINUE TO MONITOR.
[2016-09-27] MEDS: Z-GUARD PASTE TP SCH ×2 (01:19→13:00)
[2016-09-27 04:00] VITALS: BP 147/62
[2016-09-27] MEDS: HYDROcodone/APAP 7.5/325 MG 1 TAB PO PRN ×2 (04:44→12:05)
--- NOTE | 2016-09-27 04:44 | NUR ---
PT C/O BACK PAIN. SEE PAIN ASSESSMENT, ADMINISTERED NORCO PT REQUESTED. PT TURNED AND REPOSITIONED, OFFLOADED PRESSURE AREAS. PT TOLERATED WELL. ALL NEEDS MET. SAFETY MEASURES ENSURED. CALL LIGHT WITHIN REACH. WILL CONTINUE TO MONITOR.
[2016-09-27] MEDS: NACL 0.9% 1,000 ML IV SCH (05:10)
[2016-09-27] MEDS: CLINDAMYCIN 600 MG in DEXTROSE 5% 50 ML IV SCH ×3 (05:11→17:19)
[2016-09-27 06:29] LABS: BASOPHILS # (AUTO) 0.1 K/uL (0.00-0.22); BASOPHILS % (AUTO) 1.2 % (0.0-2.0); EOSINOPHILS # (AUTO) 0.3 K/uL (0-0.4); EOSINOPHILS % (AUTO) 4.1 % (0.0-4.0); HEMOGLOBIN 12.6 g/dL (12.0-16.0); LYMPHOCYTES # (AUTO) 1.2 K/uL (2.5-16.5); LYMPHOCYTES % (AUTO) 19.1 % (20.5-51.1); MEAN CORPUSCULAR HEMOGLOBIN 29 pg (27-31); MEAN CORPUSCULAR HGB CONC 33 g/dL (33-37); MEAN CORPUSCULAR VOLUME 89 fL (80-94); MONOCYTES # (AUTO) 0.3 K/uL (0.8-1.0); MONOCYTES % (AUTO) 4.9 % (1.7-9.3); NEUTROPHILS # (AUTO) 4.5 K/uL (1.8-7.7); NEUTROPHILS % (AUTO) 70.7 % (42.2-75.2); PLATELET COUNT (AUTO) 180 K/uL (140-450); RED BLOOD CELL COUNT(AUTO) 4.28 MIL/uL (4.20-5.40); RED CELL DISTRIBUTION WIDTH 13.6 % (11.6-13.7); WHITE BLOOD COUNT (AUTO) 6.4 K/uL (4.8-10.8)
--- NOTE | 2016-09-27 07:15 | NUR ---
ENDORSED PLAN OF CARE TO AM NURSE. CONDITION STABLE.
--- NOTE | 2016-09-27 07:16 | NUR ---
RECEIVED REPORT FROM THE ENTOMOLOGY TEACHER NURSE AT BEDSIDE FOR CONTINUITY OF CARE. PT IS AWAKE AND ORIENTED. INTRODUCED MYSELF AND UPDATED THE BOARD. PT V/S WITHIN NORMAL RANGE. NO FEVER. PT ANXIOUS BOUT GOING TO [place]. IV STILL INFUSING AT 50ML, R FA 20G. PT STILL HAS SUÁREZ. HAVE ORDERS FOR D/C THIS MORNING. WILL REMOVE WHEN GETTING HER READY FOR TRANSPORT. PT STILL HAVE BILATERAL UNNA BOOT. [facility] HASN'T BEEN BY. P/T HASN'T COME BY. SON IS HERE. NO WORD ON WHAT TIME FOR TRANSPORT. WILL CONTINUE TO MONITOR PT.
[2016-09-27] MEDS ORDERED: SODIUM PHOSPHATE 118 ML ENEM RC SCH (07:35)
[2016-09-27 08:00] VITALS: BP_SYST 141; BP_SYST 180; BP_DIAS 80; BP_DIAS 86
[2016-09-27] MEDS: MUPIROCIN 2% OINT 22 GM TUBE TP SCH ×3 (09:00→17:00)
[2016-09-27] MEDS: LACTULOSE 20 GM/30 ML UDC PO SCH (09:00)
[2016-09-27] MEDS: LACTOBACILLUS RHAMNOSUS GG 1 EACH CAP PO SCH (09:06)
[2016-09-27] MEDS: FERROUS SULFATE 325 MG TABEC PO SCH ×2 (09:06→21:48)
[2016-09-27] MEDS: SERTRALINE 50 MG TAB PO SCH (09:07)
[2016-09-27] MEDS: BACLOFEN 10 MG TAB PO SCH ×2 (09:07→21:48)
[2016-09-27] MEDS: ATORVASTATIN 20 MG TAB PO SCH (09:07)
[2016-09-27] MEDS: medroxyPROGESTERone 10 MG TAB PO SCH ×2 (09:07→21:49)
[2016-09-27] MEDS: DILTIAZEM 120 MG CAPER PO SCH (09:07)
--- NOTE | 2016-09-27 09:10 | NUR ---
ADMINISTERED MORNING MEDS. PT TOLERATED WELL. ATE 30% OF BREAKFAST. WILL CONTINUE TO MONITOR PT.
--- NOTE | 2016-09-27 09:24 | NUR ---
I SPOKE WITH YESICA FROM [facility] THIS AM, PHONE [phone] X [phone]. SHE SAID SHE RECEIVED NOTES FROM [place] AND SHE SPOKE WITH JAVIER FROM [place]. YESICA SAID THIS INFORMATION WAS GIVEN TO HER VACUUM BOTTLE ASSEMBLER FOR APPROVAL. I ALSO GAVE HER THE PHONE NUMBER TO DR. WONG IF THEY NEEDED A DOCTOR TO DOCTOR REPORT. SHE SAID SHE WOULD CALL ME BACK.
--- NOTE | 2016-09-27 09:58 | NUR ---
FAXED CONCURRENT REVIEW TO [facility] [phone] PHONE [phone] YESICA Vargas [id number]
--- NOTE | 2016-09-27 10:57 | NUR ---
[facility] CALLED. SPOKE W/ JAVIER. SHE IS GOING TO ROOM 99. SHE WILL CALL ME BACK WITH PHONE NUMBER TO GIVE REPORT.
--- NOTE | 2016-09-27 11:13 | NUR ---
SPOKE WITH JAVIER FROM [facility]. AUTH NUMBER FOR [facility] IS [id number]. AUTH FOR [facility] [id number]. PATIENT WILL GO TO ROOM 99. JAVIER WILL CALL ME BACK ON NAME OF PHYSICIAN.
--- NOTE | 2016-09-27 11:55 | NUR ---
SPOKE WITH JAVIER FROM [facility].THE PATIENT WILL GO TO ROOM [address] VIRGILIO CHEEMA. PHONE REPORT TO [phone]. I CALLED [facility] AND SET UP TRANSPORT FOR 3P.M. I GAVE THEM THE AUTH NUMBER FROM [facility], [id number] AND GAVE THEM THE PHONE NUMBER TO YESICA FROM [facility]. [facility] CHARGE NURSE AWARE. DR. GRAF AWARE.
[2016-09-27 12:00] VITALS: BP 152/75
[2016-09-27 13:05] LABS: ANION GAP 9.6 (8-16); CALCIUM 8.7 mg/dL (8.5-10.1); CARBON DIOXIDE 29.7 mmol/L (21-32); CHLORIDE 105 mmol/L (98-107); CREATININE 0.8 mg/dL (0.6-1.3); GLUCOSE 105 mg/dL (74-106); POTASSIUM 4.3 mmol/L (3.5-5.1); SODIUM SERUM 140 mmol/L (136-145); UREA NITROGEN, BLOOD 10 mg/dL (7-18)
--- NOTE | 2016-09-27 13:25 | NUR ---
P/T WORKING WITH [facility]
[2016-09-27] MEDS ORDERED: BACTO TP (13:59)
[2016-09-27] MEDS ORDERED: LACT10CA PO (13:59)
[2016-09-27] MEDS ORDERED: SERT-146 PO (13:59)
[2016-09-27] MEDS ORDERED: DOCU-67 PO (13:59)
[2016-09-27] MEDS ORDERED: ZGUARD TP (13:59)
[2016-09-27] MEDS ORDERED: CLIN300C2 PO (14:03)
[2016-09-27] MEDS ORDERED: HYDR-4452 PO (14:03)
--- NOTE | 2016-09-27 14:59 | NUR ---
RECEIVED CALL EARLIER FROM [facility] AND INFORMED THAT SINCE PATIENT HAS MEDICARE PART B, THAT PART B IS PRIMARY FOR TRANSPORTATION. I FAXED A PCS FORM TO [facility]. CHELSEA FROM [facility] CALLED BACK AND SAID THAT THIS PATIENT WILL NOT MEET [facility] FOR MEDICARE . I CALLED YESICA FROM [place] AND INFORMED HER. SHE SAID TO USE [facility], PHONE [phone] AND USE THE SAME AUTH THAT SHE GAVE FOR [facility]., AUTH [id number]. I CALLED [facility] AND SPOKE WITH LIZZ AND GAVE HER THE INFORMATION AND AUTH NUMBER. SHE SAID THEY COULD BE HERE IN 1-2 HOURS. I ALSO INFORMED HER THAT THE PATIENT'S WEIGHT IS 390 LBS AND MIGHT NEED A BARIATRIC GURNEY. I CALLED [facility] AND INFORMED HER OF THE CHANGE OF TRANSPORT AND TIME. THE CONFIRMATION NUMBER FOR [facility] IS [id number].
--- NOTE | 2016-09-27 15:12 | NUR ---
SPOKE TO ELENI RENE AT [facility] AND GAVE REPORT. ANSWERED ALL QUESTIONS. WILL AWAIT TRANSPORT: [facility] TO ARRIVE AT [phone]. PT IS ALL READY TO BE TRANSPORTED. FAMILY AT BEDSIDE. Addendum: 09/27/16 at 1818 by Samantha Patton RN JOSE ARMANDO D/[place]. 1200 ML OF CLEAR, YELLOW URINE. PT TOLERATED WELL. NO SIGNS OF DISTRESS.
--- NOTE | 2016-09-27 15:49 | NUR ---
URIAH FROM [facility] CALL[facility]. 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 I HAD TO SCHEDULE IT. SHE DOES NOT MEET THE WEIGHT CRITERIA. WILL NOTIFY PT AND FAMILY.
[2016-09-27 16:00] VITALS: BP 141/68
--- NOTE | 2016-09-27 16:04 | NUR ---
NOTIFIED EDGARD AT [facility] THAT [facility] WILL NOT BE HERE UNTIL 10PM. THEY ARE AWARE OF LATE ARRIVAL.
--- NOTE | 2016-09-27 16:26 | NUR ---
RECEIVED A CALL EARLIER FROM [facility]. I WAS TOLD THEY ARE HAVING TROUBLE GETTING A TRANSPORT SET UP. I GAVE THEM A LIST A SOME TRANSPORTS, E.G. [facility], [facility], TO [facility]. CALLED [facility] AGAIN AND WAS TOLD THAT PATIENT WILL BE PICKED UP BY [facility] AT 10P.M. I CALLED AND CONFIRMED [facility] AND MADE SURE THEY KNEW IT WAS [facility], WHICH THEY WERE AWARE. PICKUP WILL BE 10P.M. I INFORMED PAIGE KNOWLES CHARGE NURSE AND ASKED HER TO CALL [facility] TO INFORM THEM OF THE TIME OF PICKUP.
--- NOTE | 2016-09-27 18:14 | NUR ---
PT ALL READY TO LEAVE. JUST WAITING FOR HER TRANSPORT. NO COMPLAINTS AT THIS TIME. WILL CONTINUE TO MONITOR PT.
--- NOTE | 2016-09-27 19:30 | NUR ---
GAVE REPORT TO THE GRAIN OPERATIONS MANAGER NURSE AT BEDSIDE FOR CONTINUITY OF CARE. PT IS IN STABLE CONDITION. SAID GOOD NIGHT. ENDORSED TO NURSE RE CALLING SON WHEN TRANSPORTERS COME.
--- NOTE | 2016-09-27 19:35 | NUR ---
RECEIVED FROM AM RN AWAKE AND ALERT. ABLE TO VERBALIZE NEEDS WELL. FOR DISCHARGE TO [facility].
[2016-09-27 21:37] VITALS: BP 140/66
[2016-09-27] MEDS: ATENOLOL 50 MG TAB PO SCH (21:48)
--- NOTE | 2016-09-27 22:25 | NUR ---
STILL AWAKE AND EXCITED TO BE TRANSFERRED. WAITING FOR TRANSPORTATION TO BRING HER TO ANOTHER FACILITY. ENCOURAGED TO JUST SLEEP AND WE WILL WAKE HER UP WHEN THEY COME.
--- NOTE | 2016-09-28 00:50 | NUR ---
PT. PICKED UP BY [facility] AND WILL BE GOING TO [facility]. SON LISA CALLED BY ME AND INFORMED HIM THAT HIS MOTHER IS BEING PICKED UP NOW. NO BELONGINGS LEFT BEHIND. REPORT TO ACCEPTING FACILITY GIVEN BY CARSON RN. PT. NO COMPLAINTS.
== END 2016-09-28 00:20 | DRG 48 ==
LOC: MED 11:58 → MTU 17:19
PROVIDERS: ADMIT Family Medicine; ATTEND Family Medicine
PROC: 0HBRXZZ Excision of Toe Nail, External Approach (ICD-10-PCS; principal; 2016-09-25)
PROC: 0HBRXZZ Excision of Toe Nail, External Approach (ICD-10-PCS; 2016-09-25)
PROC: 0HBRXZZ Excision of Toe Nail, External Approach (ICD-10-PCS; 2016-09-25)
PROC: 0HBRXZZ Excision of Toe Nail, External Approach (ICD-10-PCS; 2016-09-25)
PROC: 0HBRXZZ Excision of Toe Nail, External Approach (ICD-10-PCS; 2016-09-25)
PROC: 0HBRXZZ Excision of Toe Nail, External Approach (ICD-10-PCS; 2016-09-25)
PROC: 0HBRXZZ Excision of Toe Nail, External Approach (ICD-10-PCS; 2016-09-25)
PROC: 0HBRXZZ Excision of Toe Nail, External Approach (ICD-10-PCS; 2016-09-25)
PROC: 0HBRXZZ Excision of Toe Nail, External Approach (ICD-10-PCS; 2016-09-25)
PROC: 0HBRXZZ Excision of Toe Nail, External Approach (ICD-10-PCS; 2016-09-25)
DX: G90.9 Disorder of the autonomic nervous system, unspecified (principal); N17.0 Acute kidney failure with tubular necrosis; E43 Unspecified severe protein-calorie malnutrition; L03.115 Cellulitis of right lower limb; Z68.44 Body mass index [BMI] 60.0-69.9, adult; L03.116 Cellulitis of left lower limb; E66.01 Morbid (severe) obesity due to excess calories; I48.2 Chronic atrial fibrillation; I10 Essential (primary) hypertension; E78.5 Hyperlipidemia, unspecified; E80.6 Other disorders of bilirubin metabolism; M54.9 Dorsalgia, unspecified; B37.2 Candidiasis of skin and nail; F29 Unspecified psychosis not due to a substance or known physiological condition; M19.90 Unspecified osteoarthritis, unspecified site; Z60.2 Problems related to living alone; F32.9 Major depressive disorder, single episode, unspecified; I73.9 Peripheral vascular disease, unspecified; B35.4 Tinea corporis; I87.2 Venous insufficiency (chronic) (peripheral); R73.03 Prediabetes; I25.10 Atherosclerotic heart disease of native coronary artery without angina pectoris; N93.9 Abnormal uterine and vaginal bleeding, unspecified; D25.9 Leiomyoma of uterus, unspecified; W18.30XA Fall on same level, unspecified, initial encounter; Y93.89 Activity, other specified; Y92.89 Other specified places as the place of occurrence of the external cause; Z81.1 Family history of alcohol abuse and dependence; Z87.891 Personal history of nicotine dependence; Z79.82 Long term (current) use of aspirin; Z79.899 Other long term (current) drug therapy; Z90.49 Acquired absence of other specified parts of digestive tract; Y99.8 Other external cause status
CPT/HCPCS: 36415; 51702; 71010; 72170; 76705; 76830; 80048; 80053; 80305; 81001; 82140; 83036; 83735; 83880; 84100; 84436; 84443; 84479; 84484; 85025; 85610; 85730; 87081; 93005; 93880; 93925; 93970; 96372; 97110; 97116; 97140; 97530; 99285; J1885; J3490; J7030; J7060; Q0092; S0119